=== PATIENT | female | born 1995 | race Caucasian/White ===

== ENCOUNTER 2018-10-14 19:30 | Emergency (ER) | payer OTHER, BC ==
[~2018-10-14] VITALS: Ht 175.3 cm; Wt 84.1 kg
--- NOTE | 2018-10-14 19:57 | PHYS DOC ---
Past History Past Medical History: No Pertinent History Past Surgical History: No Surgical History Alcohol Use: Occasionally Drug Use: None Adult General Chief Complaint Chief Complaint: SUICDAL IDEATION HPI HPI 22-year-old female presents with suicidal ideation. The patient states that she has been feeling sad since her in February. She blames herself, but has no specific reasons. She has had occasional thoughts of suicide. Today she had argument with her boyfriend who she lives with and decided she was going to take a bunch of pills. She states that she was concerned take a bottle of ibuprofen. Her boyfriend prevent her from doing this. They called EMS. The patient is tearful and remorseful at this time. She states that she does not want to . She would not take the pills again if she went home. She has no mental health history. She has no previous suicide attempts. Denies any feelings of illness recently. Review of Systems Review of Systems Constitutional: Denies fever or chills [] Eyes: Denies change in visual acuity, redness, or eye pain [] HENT: Denies nasal congestion or sore throat [] Respiratory: Denies cough or shortness of breath [] Cardiovascular: No additional information not addressed in HPI [] GI: Denies abdominal pain, nausea, vomiting, bloody stools or diarrhea [] : Denies dysuria or hematuria [] Musculoskeletal: Denies back pain or joint pain [] Integument: Denies rash or skin lesions [] Neurologic: Denies headache, focal weakness or sensory changes [] Endocrine: Denies polyuria or polydipsia [] All other systems were reviewed and found to be within normal limits, except as documented in this note. Allergies Allergies Allergies Coded Allergies Type Severity Reaction Last Updated Verified No Known Drug Allergies 10/14/18 No Physical Exam Physical Exam Constitutional: Well developed, well nourished, no acute distress, non-toxic appearance. [] HENT: Normocephalic, atraumatic, bilateral external ears normal, oropharynx moist, no oral exudates, nose normal. [] Eyes: PERRLA, EOMI, conjunctiva normal, no discharge. [] Neck: Normal range of motion, no tenderness, supple, no stridor. [] Cardiovascular:Heart rate regular rhythm, no murmur [] Lungs & Thorax: Bilateral breath sounds clear to auscultation [] Abdomen: Bowel sounds normal, soft, no tenderness, no masses, no pulsatile masses. [] Skin: Warm, dry, no erythema, no rash. [] Back: No tenderness, no CVA tenderness. [] Extremities: No tenderness, no cyanosis, no clubbing, ROM intact, no edema. [] Neurologic: Alert and oriented X 3, normal motor function, normal sensory function, no focal deficits noted. [] Psychologic: Affect tearful, judgement normal, mood depressed[] Current Patient Data Vital Signs Vital Signs Date Time Temp Pulse Resp B/P (MAP) Pulse Ox O2 Delivery O2 Flow Rate FiO2 10/14/18 19:43 97.9 94 18 99 Room Air EKG EKG [] Radiology/Procedures Radiology/Procedures [] Course & Med Decision Making Course & Med Decision Making Pertinent Labs and Imaging studies reviewed. (See chart for details) The patient's labs are unremarkable. A psychiatric consult was performed. They have recommended outpatient follow-up. They believe the patient is stable to go home. I can't assess the patient if she was in agreement with this plan and she is in agreement. She is stated no longer wanting to kill herself. If her symptoms worsen, she will return to the emergency room. [] Dragon Disclaimer Dragon Disclaimer This electronic medical record was generated, in whole or in part, using a voice recognition dictation system. Departure Departure: Referrals: MALIA,ROXANNA (PCP) BRITTNI BROWN DO Oct 14, 2018 19:57
[2018-10-14 20:30] LABS: AMPHETAMINE/METHAMPHETAMINE NEG (NEG); BARBITURATES NEG (NEG); BASO # 0.1 x10^3/uL (0.0-0.2); BASO % 1 % (0-3); BENZODIAZEPINES NEG (NEG); CANNABINOIDS NEG (NEG); COCAINE NEG (NEG); EOS % 0 % (0-3); HEMOGLOBIN 14.7 g/dL (12.0-15.5); LYMPH # 1.7 x10^3/uL (1.0-4.8); LYMPH % 16 % (24-48); MEAN CORPUSCULAR HEMOGLOBIN 29 pg (25-35); MEAN CORPUSCULAR HGB CONC 34 g/dL (31-37); MEAN CORPUSCULAR VOLUME 85 fL (79-100); METHADONE NEG (NEG); MONO # 0.5 x10^3/uL (0.0-1.1); MONO % 4 % (0-9); NEUT # 8.6 x10^3uL (1.8-7.7); NEUT % 79 % (31-73); OPIATES NEG (NEG); PHENCYCLIDINE NEG (NEG); PLATELET COUNT 344 x10^3/uL (140-400); RED BLOOD COUNT 5.04 x10^6/uL (3.50-5.40); RED CELL DISTRIBUTION WIDTH 12.8 % (11.5-14.5); WHITE BLOOD COUNT 10.9 x10^3/uL (4.0-11.0)
[2018-10-14 20:33] LABS: ALBUMIN 3.9 g/dL (3.4-5.0); ALBUMIN/GLOBULIN RATIO 0.9 (1.0-1.7); CALCIUM 9.2 mg/dL (8.5-10.1); CREATININE 0.9 mg/dL (0.6-1.0); GFR 79.8; POTASSIUM 3.4 mmol/L (3.5-5.1); TOTAL BILIRUBIN 0.3 mg/dL (0.2-1.0); TOTAL PROTEIN 8.2 g/dL (6.4-8.2)
[2018-10-14 20:42] VITALS: BP 125/74
[2018-10-14 20:45] LABS: BILIRUBIN,URINE NEG (NEG); CLARITY,URINE CLEAR; GLUCOSE,URINE NEG (NEG)
[2018-10-14 20:46] LABS: BACTERIA,URINE 0 /HPF (0-FEW); COLOR,URINE STRAW; NITRITE,URINE NEG (NEG); RBC,URINE RARE /HPF (0-2); SQUAMOUS EPITHELIAL CELL,UR FEW /LPF; UROBILINOGEN,URINE 0.2 mg/dL (0.2 mg/dL); WBC,URINE RARE /HPF (0-4)
== END 2018-10-14 23:05 | disposition home or self-care (01) ==
LOC: ER 19:30
DX: R45.851 Suicidal ideations (principal); F32.9 Major depressive disorder, single episode, unspecified
CPT/HCPCS: 36415; 80053; 80307; 81001; 81025; 85025; 99284

== ENCOUNTER 2019-05-18 10:29 | Emergency (ER) | payer BC, OTHER ==
[~2019-05-18] VITALS: Ht 167.6 cm; Wt 93.0 kg
[2019-05-18 10:51] VITALS: BP 121/100
[2019-05-18] MEDS ORDERED: GUAI600T47 PO (11:19)
[2019-05-18] MEDS ORDERED: AMOX875T PO (11:19)
--- NOTE | 2019-05-18 11:21 | PHYS DOC ---
Past History Past Medical History: No Pertinent History Past Surgical History: No Surgical History Alcohol Use: Occasionally Drug Use: None Adult General Chief Complaint Chief Complaint: OTHER COMPLAINTS [facility] The patient is a pleasant 23-year-old female who presents for evaluation of sinus congestion, right ear pain, and nonproductive cough. Her symptoms have been present for a few weeks. She saw another doctor was told to take Tylenol and some other medications and states that they have not been helping. She has not yet been prescribed an antibiotic. She believes that she is approximately one-month but has not yet seen the [facility]. She denies chest pain, shortness of breath, headache, neck pain or neck stiffness, fevers or chills, abdominal pain, back pain, dizziness or syncope. She is alert and oriented 4, calm, and appears to be in no distress. Review of Systems Review of Systems Constitutional: Denies fever or chills [] Eyes: Denies change in visual acuity, redness, or eye pain [] HENT: Denies nasal congestion or sore throat [] Respiratory: Denies cough or shortness of breath [] Cardiovascular: No additional information not addressed in HPI [] GI: Denies abdominal pain, nausea, vomiting, bloody stools or diarrhea [] : Denies dysuria or hematuria [] Musculoskeletal: Denies back pain or joint pain [] Integument: Denies rash or skin lesions [] Neurologic: Denies headache, focal weakness or sensory changes [] Endocrine: Denies polyuria or polydipsia [] All other systems were reviewed and found to be within normal limits, except as documented in this note. Allergies Allergies Allergies Coded Allergies Type Severity Reaction Last Updated Verified No Known Drug Allergies 10/14/18 No Physical Exam Physical Exam Constitutional: Well developed, well nourished, no acute distress, non-toxic appearance. [] HENT: Normocephalic, atraumatic, bilateral external ears normal, oropharynx moist, no oral exudates, nose normal. Dried cerumen in bilateral ears, mild erythema in the right TM Eyes: PERRLA, EOMI, conjunctiva normal, no discharge. [] Neck: Normal range of motion, no tenderness, supple, no stridor. [] Cardiovascular:Heart rate regular rhythm, no murmur [] Lungs & Thorax: Bilateral breath sounds clear to auscultation [] Abdomen: Bowel sounds normal, soft, no tenderness, no masses, no pulsatile masses. [] Skin: Warm, dry, no erythema, no rash. [] Back: No tenderness, no CVA tenderness. [] Extremities: No tenderness, no cyanosis, no clubbing, ROM intact, no edema. [] Neurologic: Alert and oriented X 3, normal motor function, normal sensory function, no focal deficits noted. [] Psychologic: Affect normal, judgement normal, mood normal. [] Current Patient Data Vital Signs Vital Signs Date Time Temp Pulse Resp B/P (MAP) Pulse Ox O2 Delivery O2 Flow Rate FiO2 05/18/19 10:51 97.2 82 18 99 Room Air EKG EKG [] Radiology/Procedures Radiology/Procedures [] Course & Med Decision Making Course & Med Decision Making Patient advised to follow-up with her [facility] in the next 1-2 days and to return to the emergency department for new or worsening symptoms. The patient will be sent home with a prescription for amoxicillin for right-sided otitis media and guaifenesin for the URI. Patient stresses verbal understanding agree with the plan is stable for discharge at this time. Dragon Disclaimer Dragon Disclaimer This electronic medical record was generated, in whole or in part, using a voice recognition dictation system. Departure Departure: Impression: Primary Impression: Sinusitis Additional Impressions: Upper respiratory infection Disposition: 01 HOME, SELF-CARE Condition: STABLE Referrals: SETH ARENAS MD (PCP) Patient Instructions: ABCs of , Sinusitis, Upper Respiratory Infection, Adult Additional Instructions: Follow-up with your [facility] in the next 2-3 days. Return to the emergency department for new or worsening symptoms. Take Tylenol home for pain relief. Take the prescribed medications as directed as needed. Scripts Amoxicillin (AMOXICILLIN) 875 Mg Tablet 1 TAB PO BID for right otitis media, #14 TAB Prov: TALA DUBOSE DO 05/18/19 Guaifenesin (MUCINEX) 600 Mg Tablet.er 1 TAB PO BID for congestion, #20 TAB Prov: TALA DUBOSE DO 05/18/19 Problem Qualifiers TALA DUBOSE DO May 18, 2019 11:21
== END 2019-05-18 11:30 | disposition home or self-care (01) ==
LOC: ER 10:29
DX: O99.511 Diseases of the respiratory system complicating pregnancy, first trimester (principal); J01.90 Acute sinusitis, unspecified; H92.01 Otalgia, right ear; Z3A.00 Weeks of gestation of pregnancy not specified
CPT/HCPCS: 99283

== ENCOUNTER 2019-07-29 14:28 | Emergency (ER) | payer OTHER ==
[~2019-07-29] VITALS: Ht 165.1 cm; Wt 89.1 kg
[~2019-07-29 14:28] MED LIST: AMOX875T PO; GUAI600T47 PO
[2019-07-29] MEDS ORDERED: IV NORMAL SALINE 1,000ML 1,000 ML IV SCH (14:46)
--- NOTE | 2019-07-29 14:52 | PHYS DOC ---
Past History Past Medical History: No Pertinent History Past Surgical History: No Surgical History Alcohol Use: Occasionally Drug Use: None Adult General Chief Complaint Chief Complaint: NAUSEA[facility]ITING[facility] HPI Patient is a 23-year-old female presents with complaint of nausea and vomiting. Patient is a who is approximately 15 weeks' gestational age. She denies any vaginal bleeding but does admit to some mild periumbilical discomfort. She states that she's not in any real pain at this time but that she just can't keep anything down. She denies any fever. She states symptoms are worsened if she tries to eat or drink.[] Review of Systems Review of Systems Constitutional: Denies fever or chills [] Respiratory: Denies cough or shortness of breath [] Cardiovascular: No additional information not addressed in HPI [] GI: Reports periumbilical abdominal discomfort with nausea and vomiting. Denies diarrhea [] : Denies dysuria or hematuria [] Neurologic: Denies headache, focal weakness or sensory changes [] All other systems were reviewed and found to be within normal limits, except as documented in this note. Allergies Allergies Allergies Coded Allergies Type Severity Reaction Last Updated Verified No Known Drug Allergies 10/14/18 No Physical Exam Physical Exam Constitutional: Well developed, well nourished, no acute distress, non-toxic appearance. [] HENT: Normocephalic, atraumatic, bilateral external ears normal, oropharynx moist, no oral exudates, nose normal. [] Eyes: PERRLA, EOMI, conjunctiva normal, no discharge. [] Neck: Normal range of motion, no tenderness, supple, no stridor. [] Cardiovascular:Heart rate regular rhythm, no murmur [] Lungs & Thorax: Bilateral breath sounds clear to auscultation [] Abdomen: Bowel sounds normal, soft, no tenderness. [] Skin: Warm, dry, no erythema, no rash. [] Extremities: No tenderness, no cyanosis, no clubbing, ROM intact, no edema. [] Neurologic: Alert and oriented X 3, no focal deficits noted. [] EKG EKG [] Radiology/Procedures Radiology/Procedures [] Course & Med Decision Making Course & Med Decision Making Pertinent Labs and Imaging studies reviewed. (See chart for details) [] Dragon Disclaimer Dragon Disclaimer This electronic medical record was generated, in whole or in part, using a voice recognition dictation system. Departure Departure: Impression: Primary Impression: Nausea and vomiting in Disposition: 01 HOME, SELF-CARE Condition: STABLE Referrals: SETH ARENAS MD (PCP) Patient Instructions: Nausea and Vomiting, Scripts Ondansetron Hcl (ZOFRAN) 4 Mg Tablet 4 MG PO Q6HRS PRN for NAUSEA, #12 TAB Prov: MICHAEL ARAIZA Jr. DO 07/29/19 MICHAEL ARAIZA Jr. DO Jul 29, 2019 14:52
[2019-07-29] MEDS ORDERED: ONDANSETRON PF 4 MG/2 ML VIAL. IV ONE (15:00)
[2019-07-29 15:07] LABS: BASO % 1 % (0-3); EOS % 1 % (0-3); HEMATOCRIT 35.4 % (36.0-47.0); HEMOGLOBIN 12.3 g/dL (12.0-15.5); LYMPH # 1.5 x10^3/uL (1.0-4.8); LYMPH % 20 % (24-48); MEAN CORPUSCULAR HEMOGLOBIN 30 pg (25-35); MEAN CORPUSCULAR HGB CONC 35 g/dL (31-37); MEAN CORPUSCULAR VOLUME 88 fL (79-100); MONO # 0.3 x10^3/uL (0.0-1.1); MONO % 4 % (0-9); NEUT # 5.6 x10^3uL (1.8-7.7); NEUT % 75 % (31-73); PLATELET COUNT 265 x10^3/uL (140-400); RED BLOOD COUNT 4.03 x10^6/uL (3.50-5.40); RED CELL DISTRIBUTION WIDTH 14.4 % (11.5-14.5); WHITE BLOOD COUNT 7.4 x10^3/uL (4.0-11.0)
[2019-07-29 15:21] LABS: ALBUMIN 3.2 g/dL (3.4-5.0); ALBUMIN/GLOBULIN RATIO 0.8 (1.0-1.7); CALCIUM 9.2 mg/dL (8.5-10.1); CREATININE 0.6 mg/dL (0.6-1.0); GFR 126.2; POTASSIUM 3.8 mmol/L (3.5-5.1); TOTAL BILIRUBIN 0.3 mg/dL (0.2-1.0); TOTAL PROTEIN 7.4 g/dL (6.4-8.2)
[2019-07-29 16:00] LABS: BACTERIA,URINE 0 /HPF (0-FEW); BILIRUBIN,URINE NEG (NEG); CLARITY,URINE CLEAR; COLOR,URINE YELLOW; GLUCOSE,URINE NEG (NEG); NITRITE,URINE NEG (NEG); RBC,URINE 0 /HPF (0-2); SQUAMOUS EPITHELIAL CELL,UR OCC /LPF; UROBILINOGEN,URINE 0.2 mg/dL (0.2 mg/dL); WBC,URINE OCC /HPF (0-4)
[2019-07-29] MEDS ORDERED: ONDA4TAB7 PO (16:22)
[2019-07-29 16:30] VITALS: BP 110/58
== END 2019-07-29 16:30 | disposition home or self-care (01) ==
LOC: ER 14:28
DX: O21.9 Vomiting of pregnancy, unspecified (principal); R10.33 Periumbilical pain; Z3A.15 15 weeks gestation of pregnancy
CPT/HCPCS: 36415; 80053; 81001; 83690; 85025; 96361; 96374; 99284; J2405; J7030

== ENCOUNTER 2020-01-04 05:49 | Emergency (ER) | payer OTHER ==
[~2020-01-04] VITALS: Ht 165.1 cm; Wt 89.1 kg
[~2020-01-04 05:49] MED LIST changes: +ONDA4TAB7 PO
[2020-01-04] MEDS ORDERED: IV NORMAL SALINE 1,000ML 1,000 ML IV ONE (06:00)
--- NOTE | 2020-01-04 06:14 | PHYS DOC ---
Past History Past Medical History: No Pertinent History Past Surgical History: Other Additional Past Surgical Histo: right knee Alcohol Use: Occasionally Drug Use: None Adult General Chief Complaint Chief Complaint: ABDOMINAL PAIN HPI HPI 24-year-old female presents with sudden onset right lower quadrant abdominal pain. The patient had a normal vaginal delivery 4 days ago. She states were no complications. She has been doing well until this morning. She got up, breast- fed the baby, and then went to the restroom. Afterward, she had sudden onset of right lower quadrant abdominal pain. She describes it as an intense cramping sensation. Any kind of movement hurts. It was painful on the ride over here with every bump that they had on the road. She's never had pain like this before. She still has her appendix. She denies heavy or unusual vaginal bleeding or discharge. Denies fever or chills. Review of Systems Review of Systems Constitutional: Denies fever or chills [] Eyes: Denies change in visual acuity, redness, or eye pain [] HENT: Denies nasal congestion or sore throat [] Respiratory: Denies cough or shortness of breath [] Cardiovascular: No additional information not addressed in HPI [] GI: RLQ abdominal pain. Denies nausea, vomiting, bloody stools or diarrhea [] : Denies dysuria or hematuria [] Musculoskeletal: Denies back pain or joint pain [] Integument: Denies rash or skin lesions [] Neurologic: Denies headache, focal weakness or sensory changes [] Endocrine: Denies polyuria or polydipsia [] All other systems were reviewed and found to be within normal limits, except as documented in this note. Current Medications Current Medications Current Medications Medications (Trade) Dose Ordered Sig/Fredi Start Time Stop Time Status Last Admin Dose Admin Iohexol (Omnipaque 300 Mg/ml) 75 ml 1X ONCE 01/04/20 06:15 01/04/20 06:16 UNV Sodium Chloride 1,000 ml @ 1,000 mls/hr 1X ONCE 01/04/20 06:00 01/04/20 06:59 UNV Allergies Allergies Allergies Coded Allergies Type Severity Reaction Last Updated Verified No Known Drug Allergies 10/14/18 No Physical Exam Physical Exam Constitutional: Well developed, well nourished, no acute distress, non-toxic appearance. [] HENT: Normocephalic, atraumatic, bilateral external ears normal, oropharynx moist, no oral exudates, nose normal. [] Eyes: PERRLA, EOMI, conjunctiva normal, no discharge. [] Neck: Normal range of motion, no tenderness, supple, no stridor. [] Cardiovascular: Heart rate regular rhythm, no murmur [] Lungs & Thorax: Bilateral breath sounds clear to auscultation [] Abdomen: Bowel sounds normal, soft, RLQ tenderness with guarding, RLQ pain with palpation of LLQ, no masses, no pulsatile masses. [] Skin: Warm, dry, no erythema, no rash. [] Back: No tenderness, no CVA tenderness. [] Extremities: No tenderness, no cyanosis, no clubbing, ROM intact, no edema. [] Neurologic: Alert and oriented X 3, normal motor function, normal sensory function, no focal deficits noted. [] Psychologic: Affect normal, judgement normal, mood normal. [] EKG EKG [] Radiology/Procedures Radiology/Procedures [] Impressions: EXAM: Pelvic Ultrasound Complete INDICATION: Sudden onset right lower quadrant abdominal pain. She is one week . ? TECHNIQUE: Real-time ultrasound of the pelvis with permanent freeze-frame documentation. Transabdominal ultrasound was performed. Patient refused endovaginal ultrasound. COMPARISON:?None. ? FINDINGS: ? UTERUS:?Uterus measures 13.3 x 9.5 x 8.0 cm.? Endometrial thickness is increased and there is heterogeneity to the endometrial stripe with no hypervascular tissue suggesting retained products of conception. ? RIGHT OVARY/ADNEXA: Right ovary 2.7 x 3.7 x 3.0 cm.? Unremarkable. Normal ovarian blood flow. LEFT OVARY/ADNEXA:?Left ovary 4.3 x 3.6 x 2.4 cm. ?Unremarkable. Normal ovarian blood flow. ? OTHER:?The appendix was not visualized in the right lower quadrant. There was rebound tenderness noted. No significant pelvic free fluid. ? IMPRESSION: ? Normal pelvic ultrasound with no evidence of ovarian torsion and nonvisualized appendix. Rebound tenderness was observed during the exam. Electronically signed by: Jasmin Hebert MD (01/04/2020 7:56 AM) [id number] DICTATED AND SIGNED BY: JASMIN HEBERT MD DATE: 01/04/20 0756 CC: BRITTNI BROWN DO; SETH ARENAS MD ~ [facility] Compliance Statement: One or more of the following individualized dose reduction techniques were utilized for this examination: 1. Automated exposure control 2. Adjustment of the mA and/or kV according to patient size 3. Use of iterative reconstruction technique CT abdomen/pelvis without contrast 01/04/2020 6:00 AM INDICATION: Right lower quadrant pain. 5 days , vaginal delivery. COMPARISON: None available TECHNIQUE: Multiple axial CT images of the abdomen and pelvis were obtained without intravenous contrast. Coronal and sagittal reformats are provided. FINDINGS: Visualized portions of the lung bases are clear. Heart size is within normal limits. Evaluation of the solid abdominal viscera is limited by lack of intravenous contrast. No suspicious hepatic masses are identified. Spleen, bilateral adrenal glands, and pancreas are normal in appearance. Gallbladder is present without adjacent inflammatory changes. The abdominal aorta is normal in course and caliber. There are no pathologically enlarged lymph nodes in the abdomen and pelvis. There is no abdominal free fluid. There is no free intraperitoneal air. Small fat-containing umbilical hernia measures 11 mm. The kidneys are relatively symmetric in appearance. There is no suspicious renal mass within the limitations of a noncontrast examination. There is no hydronephrosis. There are no calculi within the kidneys, ureters or urinary bladder. Small and large bowel are normal in caliber. There is no evidence for bowel obstruction. There are no pericolonic inflammatory changes. A normal, nondilated appendix is visualized without adjacent inflammatory changes. Uterus is enlarged in keeping with provided history of recent state. Hypoattenuation within the endometrium is suggestive of blood products. No significant pelvic free fluid. No suspicious osseous abnormality. IMPRESSION: 1. Enlarged uterus is compatible with recent state. Central hypoattenuation is most compatible with blood products. Correlate with any increase in bleeding history is findings may be within normal limits given recent delivery. 2. Appendix is normal in appearance. 3. No evidence for obstructive uropathy. 4. Small fat-containing umbilical hernia measures 11 mm. Electronically signed by: Derek Chacko MD (01/04/2020 7:58 AM) [id number] DICTATED AND SIGNED BY: DEREK CHACKO MD DATE: 01/04/20 0758 CC: BRITTNI BROWN DO; SETH ARENAS MD ~ Course & Med Decision Making Course & Med Decision Making Pertinent Labs and Imaging studies reviewed. (See chart for details) The patient's ultrasound is negative for torsion. Unremarkable for other significant findings. CT of the abdomen and pelvis is also negative for acute findings. Patient's labs are unremarkable. Her urinalysis is suggestive of urinary tract infection. I will treat her with Keflex for 5 days. She is stable for discharge at this time. [] Dragon Disclaimer Dragon Disclaimer This electronic medical record was generated, in whole or in part, using a voice recognition dictation system. Departure Departure: Impression: Primary Impression: Urinary tract infection Disposition: HOME, SELF-CARE Condition: STABLE Referrals: SETH ARENAS MD (PCP) Patient Instructions: Urinary Tract Infection, [id number] Scripts Cephalexin (KEFLEX) 500 Mg Capsule 1 CAP PO TID for UTI for 5 Days, #15 CAP 0 Refills Prov: BRITTNI BROWN DO 01/04/20 Problem Qualifiers Primary Impression: Urinary tract infection Urinary tract infection type: acute cystitis Hematuria presence: with hematuria Qualified Codes: N30.01 - Acute cystitis with hematuria BRITTNI BROWN DO Jan 04, 2020 06:14
[2020-01-04] MEDS ORDERED: ONDANSETRON PF 4 MG/2 ML VIAL. IVP ONE (06:30)
[2020-01-04] MEDS ORDERED: IOHEXOL 300 MG/ML 75 ML VIAL. IV ONE (06:30)
[2020-01-04] MEDS ORDERED: CONTRAST GIVEN MC PRN (06:30)
[2020-01-04] MEDS ORDERED: MORPHINE SULFATE 4 MG/ML DISP.SYRIN. IV ONE (06:30)
[2020-01-04 06:33] LABS: BASO % 1 % (0-3); EOS # 0.1 x10^3/uL (0.0-0.7); EOS % 2 % (0-3); HEMATOCRIT 33.6 % (36.0-47.0); LYMPH # 1.3 x10^3/uL (1.0-4.8); LYMPH % 19 % (24-48); MEAN CORPUSCULAR HEMOGLOBIN 29 pg (25-35); MEAN CORPUSCULAR HGB CONC 33 g/dL (31-37); MEAN CORPUSCULAR VOLUME 87 fL (79-100); MONO # 0.2 x10^3/uL (0.0-1.1); MONO % 3 % (0-9); NEUT # 5.2 x10^3uL (1.8-7.7); NEUT % 75 % (31-73); PLATELET COUNT 289 x10^3/uL (140-400); RED BLOOD COUNT 3.87 x10^6/uL (3.50-5.40); RED CELL DISTRIBUTION WIDTH 13.2 % (11.5-14.5); WHITE BLOOD COUNT 6.9 x10^3/uL (4.0-11.0)
[2020-01-04 06:40] LABS: CALCIUM 8.5 mg/dL (8.5-10.1); CREATININE 0.6 mg/dL (0.6-1.0); POTASSIUM 3.9 mmol/L (3.5-5.1)
[2020-01-04 06:45] LABS: ALBUMIN 2.5 g/dL (3.4-5.0); ALBUMIN/GLOBULIN RATIO 0.6 (1.0-1.7); TOTAL BILIRUBIN 0.2 mg/dL (0.2-1.0); TOTAL PROTEIN 6.6 g/dL (6.4-8.2)
[2020-01-04] MEDS ORDERED: KETOROLAC 30 MG/ML VIAL. IVP ONE (07:00)
[2020-01-04 07:42] LABS: BILIRUBIN,URINE NEG (NEG); CLARITY,URINE HAZY; COLOR,URINE YELLOW; GLUCOSE,URINE NEG (NEG)
[2020-01-04 07:43] LABS: BACTERIA,URINE MOD /HPF (0-FEW); NITRITE,URINE NEG (NEG); RBC,URINE >40 /HPF (0-2); SQUAMOUS EPITHELIAL CELL,UR FEW /LPF; UROBILINOGEN,URINE 0.2 mg/dL (0.2 mg/dL); WBC,URINE 20-40 /HPF (0-4)
--- NOTE | 2020-01-04 07:59 | RAD ---
EXAM: Pelvic Ultrasound Complete INDICATION: Sudden onset right lower quadrant abdominal pain. She is one week . ? TECHNIQUE: Real-time ultrasound of the pelvis with permanent freeze-frame documentation. Transabdominal ultrasound was performed. Patient refused endovaginal ultrasound. COMPARISON:?None. ? FINDINGS: ? UTERUS:?Uterus measures 13.3 x 9.5 x 8.0 cm.? Endometrial thickness is increased and there is heterogeneity to the endometrial stripe with no hypervascular tissue suggesting retained products of conception. ? RIGHT OVARY/ADNEXA: Right ovary 2.7 x 3.7 x 3.0 cm.? Unremarkable. Normal ovarian blood flow. LEFT OVARY/ADNEXA:?Left ovary 4.3 x 3.6 x 2.4 cm. ?Unremarkable. Normal ovarian blood flow. ? OTHER:?The appendix was not visualized in the right lower quadrant. There was rebound tenderness noted. No significant pelvic free fluid. ? IMPRESSION: ? Normal pelvic ultrasound with no evidence of ovarian torsion and nonvisualized appendix. Rebound tenderness was observed during the exam. Electronically signed by: Mannie Hebert MD (01/04/2020 7:56 AM) [id number]
--- NOTE | 2020-01-04 08:01 | RAD ---
PQRS Compliance Statement: One or more of the following individualized dose reduction techniques were utilized for this examination: 1. Automated exposure control 2. Adjustment of the mA and/or kV according to patient size 3. Use of iterative reconstruction technique CT abdomen/pelvis without contrast 01/04/2020 6:00 AM INDICATION: Right lower quadrant pain. 5 days , vaginal delivery. COMPARISON: None available TECHNIQUE: Multiple axial CT images of the abdomen and pelvis were obtained without intravenous contrast. Coronal and sagittal reformats are provided. FINDINGS: Visualized portions of the lung bases are clear. Heart size is within normal limits. Evaluation of the solid abdominal viscera is limited by lack of intravenous contrast. No suspicious hepatic masses are identified. Spleen, bilateral adrenal glands, and pancreas are normal in appearance. Gallbladder is present without adjacent inflammatory changes. The abdominal aorta is normal in course and caliber. There are no pathologically enlarged lymph nodes in the abdomen and pelvis. There is no abdominal free fluid. There is no free intraperitoneal air. Small fat-containing umbilical hernia measures 11 mm. The kidneys are relatively symmetric in appearance. There is no suspicious renal mass within the limitations of a noncontrast examination. There is no hydronephrosis. There are no calculi within the kidneys, ureters or urinary bladder. Small and large bowel are normal in caliber. There is no evidence for bowel obstruction. There are no pericolonic inflammatory changes. A normal, nondilated appendix is visualized without adjacent inflammatory changes. Uterus is enlarged in keeping with provided history of recent state. Hypoattenuation within the endometrium is suggestive of blood products. No significant pelvic free fluid. No suspicious osseous abnormality. IMPRESSION: 1. Enlarged uterus is compatible with recent state. Central hypoattenuation is most compatible with blood products. Correlate with any increase in bleeding history is findings may be within normal limits given recent delivery. 2. Appendix is normal in appearance. 3. No evidence for obstructive uropathy. 4. Small fat-containing umbilical hernia measures 11 mm. Electronically signed by: Rupa Hernandez MD (01/04/2020 7:58 AM) [id number]
[2020-01-04] MEDS ORDERED: CEPH-264 PO (08:13)
[2020-01-04 08:25] VITALS: BP 134/91
== END 2020-01-04 08:30 | disposition home or self-care (01) ==
LOC: ER 05:49
DX: O86.20 Urinary tract infection following delivery, unspecified (principal); Z98.890 Other specified postprocedural states
CPT/HCPCS: 36415; 74176; 76856; 80053; 81001; 85025; 87086; 96374; 99285; J1885; J7030

== ENCOUNTER 2020-07-17 08:02 | Emergency (ER) | payer OTHER ==
[~2020-07-17] VITALS: Ht 165.1 cm; Wt 92.8 kg
[~2020-07-17 08:02] MED LIST changes: +CEPH-264 PO
[2020-07-17 08:15] VITALS: BP 134/84
--- NOTE | 2020-07-17 08:28 | PHYS DOC ---
Past History Past Medical History: No Pertinent History Past Surgical History: Other Additional Past Surgical Histo: Vascular leg surgery Alcohol Use: Rarely Drug Use: None Adult General Chief Complaint Chief Complaint: SKIN PROBLEM HPI HPI Patient is a 24-year-old female who presents for skin problem. Patient reports noticing skin problem at top of gluteal fold approximately 1 week ago. This progressively worsened becoming more painful and patient ended up seeing local urgent care on . She was diagnosed with a pilonidal cyst and prescribed Keflex for which she is still taking. She presents today because of ongoing pain and unsure if it needs to be incised and drained. She has no fever, unknown if there is any spreading erythema, she has been compliant with all medications as prescribed, no history of MRSA infection. Patient reports being more physically active and sweaty lately Review of Systems Review of Systems Fourteen body systems of review of systems have been reviewed. See HPI for pertinent positives and negative responses, other scott all other systems are negative, non-pertinent or non-contributory Allergies Allergies Allergies Coded Allergies Type Severity Reaction Last Updated Verified No Known Drug Allergies 07/17/20 No Physical Exam Physical Exam Constitutional: Well developed, well nourished, no acute distress, non-toxic appearance. HENT: Normocephalic, atraumatic, bilateral external ears normal, oropharynx moist, no oral exudates, nose normal. Eyes: PERRLA, EOMI, conjunctiva normal, no discharge. Neck: Normal range of motion, no tenderness, supple, no stridor. Cardiovascular: Heart rate regular, sinus rhythm, no murmurs rubs or gallops Lungs & Thorax: Bilateral breath sounds clear to auscultation Abdomen: Bowel sounds normal, soft, no tenderness, no masses, no pulsatile masses. Nonsurgical abdomen, no peritoneal signs Skin: Warm, dry, no rash. Well-appearing, appears to be nearly resolved pilonidal cyst. Mild erythema total diameter less than 2 cm2, focal head without expressible pus or palpable fluctuance on palpation Back: No tenderness, no CVA tenderness. Extremities: No tenderness, no cyanosis, no clubbing, ROM intact, no edema. Neurologic: Alert and oriented X 3, grossly normal motor & sensory function, no focal deficits noted. Psychologic: Affect normal, judgement normal, mood normal. Current Patient Data Vital Signs Vital Signs Date Time Temp Pulse Resp B/P (MAP) Pulse Ox O2 Delivery O2 Flow Rate FiO2 07/17/20 08:15 98.0 93 16 134/84 (101) 99 Room Air EKG EKG [] Radiology/Procedures Radiology/Procedures [] Course & Med Decision Making Course & Med Decision Making Patient seen and evaluated on immediate ER arrival ABCs non-concerning Comprehensive history and physical exam obtained, no emergent and/or surgical findings Discussed likely resolving pilonidal cyst, patient is on appropriate medical therapy, discussed there is no indication for incision and drainage at this time I recommended continued use of prescribed Keflex to completion. I advised patient to establish with local PCP for follow-up in upcoming 1 to 14 days to ensure symptomatic resolution of pilonidal cyst in addition to establish care Strict return precautions were discussed with good understanding by patient, all questions and concerns addressed prior to ER departure in stable condition Dragon Disclaimer Dragon Disclaimer This electronic medical record was generated, in whole or in part, using a voice recognition dictation system. Departure Departure: Impression: Primary Impression: Pilonidal cyst Disposition: 01 HOME/RESIDENCE PRIOR TO ADM Condition: STABLE Referrals: SETH ARENAS MD (PCP) Patient Instructions: Pilonidal Cyst Justification of Admission: Justification of Admission: Justification of Admission Dx: N/A ELOISE SHAW DO Jul 17, 2020 08:28
== END 2020-07-17 08:30 | disposition home or self-care (01) ==
LOC: ER 08:02
DX: L05.91 Pilonidal cyst without abscess (principal)
CPT/HCPCS: 99282

== ENCOUNTER 2020-07-20 11:27 | Emergency (ER) | payer OTHER ==
[~2020-07-20] VITALS: Ht 165.1 cm; Wt 92.2 kg
[2020-07-20] MEDS ORDERED: LIDOCAINE 2%/EPI 1:100,000 20 ML VIAL. IJ ONE (11:45)
--- NOTE | 2020-07-20 12:05 | PHYS DOC ---
Past History Past Medical History: No Pertinent History Past Surgical History: Other Additional Past Surgical Histo: Vascular leg surgery Smoking: Non-smoker Alcohol Use: Rarely Drug Use: None General Adult EDM: Chief Complaint: SKIN PROBLEM HPI: HPI: Abigail Grajeda is a 24-year-old female presents with abscess in her gluteal cleft she states that she was seen at urgent care on 07/14 for this issue and was started on Keflex, which she has since finished. The pain has worsened since and is positional in nature. The patient denies other symptoms including fever. She has tried ice, Neosporin, Epsom salt baths, and Tylenol and ibuprofen for pain all without relief. Review of Systems: Review of Systems: Constitutional: Denies fever or chills Eyes: Denies redness or eye pain HENT: Denies nasal congestion or sore throat Respiratory: Denies cough or shortness of breath Cardiovascular: Denies chest pain or palpitations GI: Denies abdominal pain, nausea, or vomiting : Denies dysuria or hematuria Musculoskeletal: Reports back pain; denies joint pain Integument: Affirms abscess Neurologic: Denies headache, focal weakness or sensory changes Complete systems were reviewed and found to be within normal limits, except as documented in this note. Current Medications: Current Meds: Current Medications Medications (Trade) Dose Ordered Sig/Fredi Start Time Stop Time Status Last Admin Dose Admin Lidocaine/ Epinephrine (Xylocaine 2%-Epi 1:100,000) 20 ml 1X ONCE 07/20/20 11:45 07/20/20 11:58 DC Allergies: Allergies: Allergies Coded Allergies Type Severity Reaction Last Updated Verified No Known Drug Allergies 07/17/20 No Physical Exam: PE: Constitutional: Well developed, well nourished, no acute distress, non-toxic appearance HENT: Normocephalic, atraumatic Lungs & Thorax: No respiratory distress, equal chest rise and fall Abdomen: Soft, no tenderness Skin: Right gluteal cleft: Large approximately 3 cm in diameter raised yellow- white abscess with surrounding erythema, no discharge, moderate tenderness to palpation Extremities: No tenderness, ROM intact, no edema Neurologic: Alert and oriented X 3, normal motor function, normal sensory function, no focal deficits noted Psychologic: Affect normal, judgment normal Current Patient Data: Vital Signs: Vital Signs Date Time Temp Pulse Resp B/P (MAP) Pulse Ox O2 Delivery O2 Flow Rate FiO2 9/16/20 11:30 99.0 143 20 104/68 (80) 97 Room Air Course & Med Decision Making: Course & Med Decision Making Patient presents HPI and physical exam consistent for pilonidal cyst. Decision was made to incise and drain the wound.. I&D performed with expression of large amount of malodorous purulent material. Empiric antibiotics given. Patient stable for discharge home with outpatient follow-up with PCP. Discussed findings and plan with patient, who acknowledges understanding and agreement. Mary Kay Disclaimer: Mary Kay Disclaimer: This electronic medical record was generated, in whole or in part, using a voice recognition dictation system. Incision and Drainage Incision and Drainage : Site: Right gluteal cleft Blade Size: 11 I & D Procedure: betadine prep, sterile dressing applied, gauze wick placed Progress Verbal consent obtained. Time out performed. Hand hygiene utilized. Wound cleaned with ChloraPrep. Anesthesia obtained via a 27-gauge hypodermic needle with (15) mL's of lidocaine 2% with epinephrine. An approximately 3 cm incision was made over the area with copious purulent bloody drainage. Decision was further using curved Jennifer clamp to investigate extent of abscess. Copious irrigation performed. Packed with iodoform gauze. Patient tolerated procedure fairly well with 15 mcg fentanyl given IM in the middle of the procedure. Empiric antibiotic ointment applied prior to sterile dressing. Patient instructed to remove packing on her own and approximately 24 hours. Departure Departure: Impression: Primary Impression: Pilonidal abscess Disposition: 01 HOME/RESIDENCE PRIOR TO ADM Condition: STABLE Referrals: SETH ARENAS MD (PCP) Patient Instructions: Pilonidal Cyst, Care After Additional Instructions: Remove packing in 24 hours. Do not soak your wound. You may shower. Clean wound daily with soap and water. After packing removal change dressing 2 times daily. Use over the counter antibiotic ointment with each dressing change. Scripts Hydrocodone Bit/Acetaminophen (NORCO 5-325 TABLET) 1 Each Tablet 0.5-1 TAB PO Q6HRS PRN for PAIN, #10 TAB Prov: ELLEN RAND DO 07/20/20 Clindamycin Hcl (CLINDAMYCIN HCL) 300 Mg Capsule 1 CAP PO TID for Abscess for 7 Days, #21 CAP Prov: ELLEN RAND DO 07/20/20 Justification of Admission: Justification of Admission: Justification of Admission Dx: N/A ELLEN RAND DO Jul 20, 2020 12:05
[2020-07-20] MEDS ORDERED: CLINDAMYCIN HCL 150 MG CAPSULE PO ONE (13:15)
[2020-07-20] MEDS ORDERED: HYDROcodone/APAP 5/325MG 1 TAB TABLET PO ONE (13:15)
[2020-07-20 13:17] VITALS: BP 122/69
[2020-07-20] MEDS ORDERED: CLIN300C8 PO (13:25)
[2020-07-20] MEDS ORDERED: HYDR-3165 PO (13:25)
== END 2020-07-20 13:40 | disposition home or self-care (01) ==
LOC: ER 11:27
DX: L05.01 Pilonidal cyst with abscess (principal)
CPT/HCPCS: 10080; 96372; 99285; J3010; 10060; 99283

== ENCOUNTER 2021-06-26 23:10 | Emergency (ER) | payer OTHER ==
[~2021-06-26] VITALS: Ht 167.6 cm; Wt 97.2 kg
[~2021-06-26 23:10] MED LIST changes: +CLIN300C9 PO; +HYDR-3165 PO
[2021-06-26] MEDS ORDERED: CONTRAST GIVEN. MC PRN (23:45)
--- NOTE | 2021-06-26 23:57 | PHYS DOC ---
Past History Past Medical History: No Pertinent History Past Surgical History: Other Additional Past Surgical Histo: Vascular leg surgery Smoking: Non-smoker Alcohol Use: Rarely Drug Use: None General Adult EDM: Chief Complaint: Abdominal pain HPI: HPI: 25-year-old female presents with right sided abdominal pain. Patient states that it started yesterday when she woke up. It has gotten worse all day. She describes it as an intense cramp to a stabbing sensation. It is an 7 out of 10 at this time. She has no history of abdominal surgery. She went to her doctor earlier today. Pain x-ray before she was constipated. She does not think she is constipated because she "pooped all day." She has some mild nausea but denies vomiting, fever, chills, diarrhea. Review of Systems: Review of Systems: Constitutional: Denies fever or chills Eyes: Denies change in visual acuity HENT: Denies nasal congestion or sore throat Respiratory: Denies cough or shortness of breath Cardiovascular: Denies chest pain or edema GI: Right-sided abdominal pain, nausea. Denies vomiting, bloody stools or diarrhea : Denies dysuria Musculoskeletal: Denies back pain or joint pain Integument: Denies rash Neurologic: Denies headache, focal weakness or sensory changes Endocrine: Denies polyuria or polydipsia Lymphatic: Denies swollen glands Psychiatric: Denies depression or anxiety Allergies: Allergies: Allergies Coded Allergies Type Severity Reaction Last Updated Verified No Known Drug Allergies 07/17/20 No Physical Exam: PE: Constitutional: Well developed, well nourished, no acute distress, non-toxic appearance. [] HENT: Normocephalic, atraumatic, bilateral external ears normal, oropharynx moist, no oral exudates, nose normal. [] Eyes: PERRLA, EOMI, conjunctiva normal, no discharge. [] Neck: Normal range of motion, no tenderness, supple, no stridor. [] Cardiovascular: Heart rate regular rhythm, no murmur [] Lungs & Thorax: Bilateral breath sounds clear to auscultation [] Abdomen: Bowel sounds normal, soft, right sided tenderness without rebound, no masses, no pulsatile masses. [] Skin: Warm, dry, no erythema, no rash. [] Back: No tenderness, no CVA tenderness. [] Extremities: No tenderness, no cyanosis, no clubbing, ROM intact, no edema. [] Neurologic: Alert and oriented X 3, normal motor function, normal sensory function, no focal deficits noted. [] Psychologic: Affect normal, judgement normal, mood normal. [] Current Patient Data: Labs: Laboratory Tests Test 06/26/21 23:33 POC Urine HCG, Qualitative hcg negative (Negative) EKG: EKG: [] Radiology/Procedures: Radiology/Procedures: [] Impressions: PQRS Compliance Statement: One or more of the following individualized dose reduction techniques were utilized for this examination: 1. Automated exposure control 2. Adjustment of the mA and/or kV according to patient size 3. Use of iterative reconstruction technique CT ABDOMEN+PELVIS W Clinical Indication: Reason: RLQ pain, Comparison: CT abdomen and pelvis without contrast January 04, 2020. Technique: Helical CT imaging of the abdomen and pelvis is performed after 75 cc of Omnipaque 300 IV contrast. Oral contrast not administered. Findings: Lung bases are clear. Cardiac size normal. The gallbladder is contracted. The liver, spleen, pancreas, adrenal glands, and abdominal aorta are normal. There is thickening and hyperenhancement of the right renal pelvis and the proximal half of the right ureter. There is less pronounced wall thickening and hyperenhancement of the proximal left ureter. The kidneys enhance symmetrically. There is no perinephric stranding. There is no overt hydronephrosis. No ureteral calculus is identified. There is small right ureterocele, image 75. The urinary bladder is without wall thickening. The stomach is unremarkable. There is no dilated small bowel. The appendix is normal. There is no colon wall thickening. There are several subcentimeter mesenteric lymph nodes. There is no adenopathy. The uterus and ovaries are unremarkable. There is no pelvic free fluid. No acute bone abnormality. IMPRESSION: 1. There is moderate wall thickening and hyperenhancement of the right renal pelvis and the proximal right ureter. There is less pronounced wall thickening and hyperenhancement of the proximal left ureter. There is no obstructive uropathy. Findings suggest nonspecific pyelitis and ureteritis. 2. Right ureterocele. 3. The appendix is normal. Electronically signed by: Mario Crowe MD (06/27/2021 1:11 AM) [facility] DICTATED AND SIGNED BY: MARIO CROWE MD DATE: 06/27/21 0059 CC: BRITTNI BROWN DO; SETH ARENAS MD ~MTH0 0 Heart Score: C/O Chest Pain: N/A Risk Factors: Risk Factors: DM, Current or recent (<one month) smoker, HTN, HLP, family history of CAD, obesity. Risk Scores: Score 0 - 3: 2.5% MACE over next 6 weeks - Discharge Home Score 4 - 6: 20.3% MACE over next 6 weeks - Admit for Clinical Observation Score 7 - 10: 72.7% MACE over next 6 weeks - Early Invasive Strategies Course & Med Decision Making: Course & Med Decision Making Pertinent Labs and Imaging studies reviewed. (See chart for details) The patient appears to have a urinary tract infection. Her other labs are unremarkable. Her CT scan shows nondescript wall thickening of the renal pelvis bilaterally. See official read for more details. I will treat her with Macrobid for 5 days. First dose was given in the ED. The patient also appears to have right-sided constipation. I advised that she continue her bowel regimen to move this through. She is stable for discharge at this time. [] Dragon Disclaimer: Dragon Disclaimer: This electronic medical record was generated, in whole or in part, using a voice recognition dictation system. Departure Departure: Impression: Primary Impression: Urinary tract infection Additional Impression: Constipation Disposition: 01 HOME / SELF CARE / HOMELESS Condition: STABLE Referrals: SETH ARENAS MD (PCP) Patient Instructions: Urinary Tract Infection, [id number] Scripts Nitrofurantoin Monohyd/M-Cryst (MACROBID 100 MG CAPSULE) 100 Mg Capsule 1 CAP PO BID for UTI for 5 Days, #10 CAP 0 Refills Prov: BRITTNI BROWN DO 06/27/21 BRITTNI BROWN DO Jun 26, 2021 23:57
[2021-06-27] MEDS ORDERED: IOHEXOL 300 MG/ML 75 ML VIAL. IV ONE
[2021-06-27] MEDS ORDERED: IV NORMAL SALINE 1,000ML 1,000 ML IV ONE
[2021-06-27] MEDS ORDERED: ONDANSETRON PF 4 MG/2 ML VIAL. IVP ONE
[2021-06-27 00:23] LABS: BASO % 1 % (0-3); EOS # 0.1 x10^3/uL (0.0-0.7); EOS % 1 % (0-3); HEMATOCRIT 39.8 % (36.0-47.0); HEMOGLOBIN 13.5 g/dL (12.0-15.5); LYMPH # 2.9 x10^3/uL (1.0-4.8); LYMPH % 32 % (24-48); MEAN CORPUSCULAR HEMOGLOBIN 29 pg (25-35); MEAN CORPUSCULAR HGB CONC 34 g/dL (31-37); MEAN CORPUSCULAR VOLUME 86 fL (79-100); MONO # 0.5 x10^3/uL (0.0-1.1); MONO % 5 % (0-9); NEUT # 5.5 x10^3uL (1.8-7.7); NEUT % 61 % (31-73); PLATELET COUNT 330 x10^3/uL (140-400); RED BLOOD COUNT 4.63 x10^6/uL (3.50-5.40); RED CELL DISTRIBUTION WIDTH 12.8 % (11.5-14.5)
[2021-06-27 00:32] LABS: BILIRUBIN,URINE NEG (NEG); CLARITY,URINE HAZY; COLOR,URINE YELLOW; GLUCOSE,URINE NEG (NEG)
[2021-06-27 00:33] LABS: BACTERIA,URINE FEW /HPF (0-FEW); NITRITE,URINE NEG (NEG); SQUAMOUS EPITHELIAL CELL,UR OCC /LPF; UROBILINOGEN,URINE 0.2 mg/dL (0.2 mg/dL)
[2021-06-27 00:35] LABS: CALCIUM 8.5 mg/dL (8.5-10.1); CREATININE 0.9 mg/dL (0.6-1.0); GFR 77.6; POTASSIUM 3.8 mmol/L (3.5-5.1)
[2021-06-27 00:38] LABS: BARBITURATES NEG (NEG); BENZODIAZEPINES NEG (NEG); CANNABINOIDS NEG (NEG); COCAINE NEG (NEG); METHADONE NEG (NEG); OPIATES NEG (NEG); PHENCYCLIDINE NEG (NEG)
[2021-06-27 00:42] LABS: ALBUMIN 3.8 g/dL (3.4-5.0); TOTAL BILIRUBIN 0.3 mg/dL (0.2-1.0); TOTAL PROTEIN 7.6 g/dL (6.4-8.2)
[2021-06-27 00:42] LABS: AMPHETAMINE/METHAMPHETAMINE NEG (NEG)
[2021-06-27] MEDS ORDERED: NITROFURANTOIN MONOHYD/M-CRYST 100 MG CAPSULE. PO ONE (01:00)
--- NOTE | 2021-06-27 01:13 | RAD ---
PQRS Compliance Statement: One or more of the following individualized dose reduction techniques were utilized for this examinat ion: 1. Automated exposure control 2. Adjustment of the mA and/or kV according to patient size 3. Use of iterative reconstruction technique CT ABDOMEN+PELVIS W Clinical Indication: Reason: RLQ pain, Comparison: CT abdomen and pelvis without contrast January 04, 2020. Technique: Helical CT imaging of the abdomen and pelvis is performed after 75 cc of Omnipaque 300 IV contrast. Oral contrast not administered. Findings: Lung bases are clear. Cardiac size normal. The gallbladder is contracted. The liver, spleen, pancreas, adrenal glands, and abdominal aorta are n ormal. There is thickening and hyperenhancement of the right renal pelvis and the proximal half of the right ureter. There is less pronounced wall thickening and hyperenhancement of the proximal left ureter. T he kidneys enhance symmetrically. There is no perinephric stranding. There is no overt hydronephrosis . No ureteral calculus is identified. There is small right ureterocele, image 75. The urinary bladder is without wall thickening. The stomach is unremarkable. There is no dilated small bowel. The appendix is normal. There is no col on wall thickening. There are several subcentimeter mesenteric lymph nodes. There is no adenopathy. The uterus and ovaries are unremarkable. There is no pelvic free fluid. No acute bone abnormality. IMPRESSION: 1. There is moderate wall thickening and hyperenhancement of the right renal pelvis and the proximal right ureter. There is less pronounced wall thickening and hyperenhancement of the proximal left ure ter. There is no obstructive uropathy. Findings suggest nonspecific pyelitis and ureteritis. 2. Right ureterocele. 3. The appendix is normal. Electronically signed by: Mario Coles MD (06/27/2021 1:11 AM) [facility]
[2021-06-27] MEDS ORDERED: NITR100C62 PO (01:23)
[2021-06-27 01:30] VITALS: BP 140/76
== END 2021-06-27 01:33 | disposition home or self-care (01) ==
LOC: ER 23:13
DX: N39.0 Urinary tract infection, site not specified (principal); K59.00 Constipation, unspecified
CPT/HCPCS: 36415; 74177; 80053; 80307; 81001; 81025; 85025; 87086; 96361; 96374; 99285; J2405; J7030; Q9967

== ENCOUNTER 2021-07-17 16:33 | Emergency (ER) | payer OTHER ==
[~2021-07-17] VITALS: Ht 167.6 cm; Wt 97.5 kg
[~2021-07-17 16:33] MED LIST changes: +NITR100C62 PO
[2021-07-17] MEDS ORDERED: ONDANSETRON ODT 4 MG TAB.RAPDIS PO ONE (17:00)
[2021-07-17] MEDS ORDERED: DICYCLOMINE HCL 20 MG TABLET PO ONE (17:00)
--- NOTE | 2021-07-17 17:08 | PHYS DOC ---
Past History Past Medical History: No Pertinent History (SHEILA VIZCAINO APRN) Past Surgical History: No Surgical History Additional Past Surgical Histo: Vascular leg surgery (SHEILA VIZCAINO APRN) Smoking: Non-smoker Alcohol Use: Occasionally Drug Use: None (SHEILA VIZCAINO APRN) General Adult EDM: Chief Complaint: ABDOMINAL PAIN HPI: HPI: Patient is a 25-year-old female who presents with nausea and diarrhea since this morning. Denies vomiting. Denies fevers. No recent illness or exposure. Denies medical history. (SHEILA VIZCAINO APRN) Review of Systems: Review of Systems: Constitutional: Denies fever or chills Eyes: Denies change in visual acuity HENT: Denies nasal congestion or sore throat Respiratory: Denies cough or shortness of breath Cardiovascular: Denies chest pain or edema GI: Reports abdominal cramping, nausea and diarrhea : Denies dysuria Musculoskeletal: Denies back pain or joint pain Integument: Denies rash Neurologic: Denies headache, focal weakness or sensory changes Endocrine: Denies polyuria or polydipsia Lymphatic: Denies swollen glands Psychiatric: Denies depression or anxiety (SHEILA VIZCAINO APRN) Allergies: Allergies: Allergies Coded Allergies Type Severity Reaction Last Updated Verified No Known Drug Allergies 07/17/21 No (SHEILA VIZCAINO APRN) Physical Exam: PE: Constitutional: Well developed, well nourished, no acute distress, non-toxic appearance. [] HENT: Normocephalic, atraumatic, bilateral external ears normal, oropharynx moist, no oral exudates, nose normal. [] Eyes: PERRLA, EOMI, conjunctiva normal, no discharge. [] Neck: Normal range of motion, no tenderness, supple, no stridor. [] Cardiovascular:Heart rate regular rhythm, no murmur [] Lungs & Thorax: Bilateral breath sounds clear to auscultation [] Abdomen: Bowel sounds normal, soft, no tenderness, no masses, no pulsatile masses. [] Skin: Warm, dry, no erythema, no rash. [] Back: No tenderness, no CVA tenderness. [] Extremities: No tenderness, no cyanosis, no clubbing, ROM intact, no edema. [] Neurologic: Alert and oriented X 3, normal motor function, normal sensory function, no focal deficits noted. [] Psychologic: Affect normal, judgement normal, mood normal. [] (SHEILA VIZCAINO APRN) Current Patient Data: Vital Signs: Vital Signs Date Time Temp Pulse Resp B/P (MAP) Pulse Ox O2 Delivery O2 Flow Rate FiO2 07/17/21 16:40 97.5 97 18 155/79 (104) 100 Room Air (SHEILA VIZCAINO APRN) EKG: EKG: [] (SHEILA VIZCAINO APRN) Radiology/Procedures: Radiology/Procedures: [] (SHEILA VIZCAINO APRN) Heart Score: C/O Chest Pain: No Risk Factors: Risk Factors: DM, Current or recent (<one month) smoker, HTN, HLP, family history of CAD, obesity. Risk Scores: Score 0 - 3: 2.5% MACE over next 6 weeks - Discharge Home Score 4 - 6: 20.3% MACE over next 6 weeks - Admit for Clinical Observation Score 7 - 10: 72.7% MACE over next 6 weeks - Early Invasive Strategies (SHEILA VIZCAINO APRN) Course & Med Decision Making: Course & Med Decision Making Pertinent Labs and Imaging studies reviewed. (See chart for details) [] 25-year-old female presents with nausea and diarrhea that started this morning. Patient given Zofran and Bentyl for abdominal cramping. Patient most likely has gastroenteritis. Patient sent home with Zofran for nausea along with Bentyl for abdominal cramping. Patient to drink plenty of fluids. Ibuprofen and Tylenol for fevers. Patient states she understands discharge instructions. (SHEILA VIZCAINO APRN) Course & Med Decision Making I was the Attending physician on the above date of service of this patient. This patient was evaluated, examined, treated, and dispositioned from the emergency department by the mid-level practitioner. Although I was working at the time , no assistance was requested. Electronically signed, Eloise Shaw DO (ELOISE SHAW DO) Mary Kay Disclaimer: Mary Kay Disclaimer: This electronic medical record was generated, in whole or in part, using a voice recognition dictation system. (SHEILA VIZCAINO APRN) Departure Departure: Impression: Primary Impression: Gastroenteritis Disposition: HOME / SELF CARE / HOMELESS Condition: STABLE Referrals: SETH ARENAS MD (PCP) Patient Instructions: Viral Gastroenteritis, [id number] Additional Instructions: You are seen emergency room for nausea and diarrhea. You were given Bentyl for abdominal cramping along with Zofran. Sending home prescription for Zofran. Make sure you are drinking plenty of fluids. Ibuprofen and Tylenol with fever. Please return emergency room if you have worsening symptoms or concerns. EMERGENCY DEPARTMENT GENERAL DISCHARGE INSTRUCTIONS Thank you for coming to [facility] (ED) today and trusting us with you care. We trust that you had a positivie experience in our Emergency Department. If you wish to speak to the department management, you may call the director at [phone]. YOUR FOLLOW UP INSTRUCTIONS ARE FOLLOWS: 1. Do you have a private Doctor? If you do not have a private doctor, please ask for a resource list of physicians or clinics that may be able to assist you with follow up care. 2. The Emergency Physician has interpreted your x-rays. The X-Ray specialist will also review them. If there is a change in the findings, you will be notified in 48 hours when at all possible. 3. A lab test or culture has been done, your results will be reviewed and you will be notified if you need a change in treatment. ADDITIONAL INSTRUCTIONS AND INFORMATION: 1. Your care today has been supervised by a physician who is specially trained in emergency care. Many problems require more than one evaluation for a complete diagnosis and treatment. We recommend that you schedule your follow up appointment as recommended to ensure complete treatment of you illness or injury. If you are unable to obtain follow up care and continue to have a problem, or if your condition worsens, we recommend that you return to the ED. 2. We are not able to safely determine your condition over the phone nor are we able to give sound medical advice over the phone. For these safety reasons, if you call for medical advice we will ask you to come to the ED for further evaluation. 3. If you have any questions regarding these discharge instructions please call the ED at [phone]. SAFETY INFORMATION: In the interest of safety, wellness, and injury prevention; we encourage you to wear your sealbelt, if you smoke; quite smoking, and we encourage family to use a protective helmet for bicycling and other sporting events that present an increased risk for head injury. IF YOUR SYMPTOMS WORSEN OR NEW SYMPTOMS DEVELOP, OR YOU HAVE CONCERNS ABOUT YOUR CONDITION; OR IF YOUR CONDITION WORSENS WHILE YOU ARE WAITING FOR YOUR FOLLOW UP APPOINTMENT; EITHER CONTACT YOUR PRIMARY CARE DOCTOR, THE PHYSICIAN WHOSE NAME AND NUMBER YOU WERE GIVEN, OR RETURN TO THE ED IMMEDIATELY. Scripts Ondansetron Hcl (ZOFRAN) 4 Mg Tablet 4 MG PO TID PRN PRN for NAUSEA for 10 Days, #30 TAB Prov: SHEILA VIZCAINO APRN 07/17/21 SHEILA VIZCAINO APRN Jul 17, 2021 17:08 ELOISE SHAW DO Jul 18, 2021 06:27
[2021-07-17] MEDS ORDERED: ONDA4TAB7 PO (17:41)
[2021-07-17 17:45] LABS: BILIRUBIN,URINE NEG (NEG); CLARITY,URINE CLEAR; COLOR,URINE YELLOW; GLUCOSE,URINE NEG (NEG)
[2021-07-17 17:46] LABS: BACTERIA,URINE FEW /HPF (0-FEW); NITRITE,URINE NEG (NEG); RBC,URINE 0 /HPF (0-2); SQUAMOUS EPITHELIAL CELL,UR FEW /LPF; UROBILINOGEN,URINE 0.2 mg/dL (0.2 mg/dL)
[2021-07-17 17:50] VITALS: BP 141/71
== END 2021-07-17 17:55 | disposition home or self-care (01) ==
LOC: ER 16:33
DX: K52.9 Noninfective gastroenteritis and colitis, unspecified (principal)
CPT/HCPCS: 81001; 81025; 87086; 99283; Q0162